=== PATIENT | male | born 1990 | race Caucasian/White ===

== ENCOUNTER 2024-03-31 21:16 | Emergency (ER) | payer OTHER, SELFPAY ==
[2024-03-31 21:18] VITALS: BP 153/91
--- NOTE | 2024-03-31 21:31 | ED.GENMED ---
History of Present Illness
General
Chief Complaint: Seizure
Source: patient
Time Seen by Provider: 03/31/24 21:20
Travel History
Have you had any contact with someone who has COVID-19?: No
Do you have any symptoms of coronavirus? Fever > 100 degrees, chills, cough, shortness of breath, sore throat, loss of taste or smell, muscle aches, or headache?: No
History of Present Illness
History of Present Illness:
54-year-old male presents to the emergency room via ambulance after having event that is described as a seizure by family. Patient was going to the bathroom when he evidently had become unresponsive. He was witnessed to be stiff initially and then
have generalized tonic-clonic activity. He did bite his tongue. Patient is currently awake and alert. He feels foggy but is able to answer questions appropriately. He denies any history of seizures. He denies any illicit drug use. Specifically
denies using benzodiazepine. He drinks alcohol occasionally but denies any regular use of alcohol or recent cessation of regular alcohol use. Patient does complain of some left thorax pain which occurred while at work. He was putting a tree
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 He did not get struck in the head. He has pain with deep inspiration but is not short of breath. He denies abdominal pain.
Past History
Past History
ED Past Medical History: None
ED Past Surgical History: Orthopedic
Social History
Living: with family
Phy Exam
Physical Exam
Physical Exam:
General: Awake, Alert, Oriented X3. No acute distress.
Vitals: unremarkable
Head: Atraumatic
Eyes: Pupils equal, EOMI
Throat: Airway intact, no exudates
Neck: Trachea midline
Lungs: Clear and equal b/l
Heart: Regular rate, no murmurs
Abd: Soft, Nontender, No pulsatile mass
Neuro: Cranial nerves intact, muscle strength equal bilaterally, cerebellar exam normal
Skin: Warm, dry, no rash
Extremities: pulses equal b/l, no edema
Course
Orders/Labs/Results
Orders:
Orders
03/31/24 21:30
Electrocardiogram (*1) Stat
Reason for Study: Other
Other Reason for Exam: neuro symptoms
CT Head W/o Iv Contrast Urgent
Comment:
Reason For Exam: new onset sz
Cardiac Monitoring- Treatment ONCE
EKG- Treatment ONCE
03/31/24 21:31
CR Chest - 2 Views Urgent
Comment:
Reason For Exam: left thorax pain,
03/31/24 21:44
Basic Metabolic Panel Urgent
Complete Blood Count/With Diff Urgent
03/31/24 21:59
Ketorolac [Toradol] 15 mg .ROUTE .STK-MED ONE
03/31/24 22:01
Ketorolac [Toradol] 15 mg IM NOW STA
Abnormal Lab Results
03/31/24
21:44
RBC 4.44 L 10^6/uL
(4.70-6.10)
MCH 31.3 H pg
(27.0-31.0)
Absolute Lymphs (auto) 0.8 L 10^3/uL
(1.2-3.4)
Absolute Monos (auto) 0.7 H 10^3/uL
(0.1-0.6)
Immature Gran % 0.8 H %
(0-0.5)
Lymphocytes % 15.6 L %
(20.5-51.1)
Monocytes % 14.5 H %
(1.7-9.3)
Sodium 133 L mmol/L
(135-145)
Carbon Dioxide 18 L mmol/L
(22-30)
Glucose 144 H mg/dl
(70-99)
03/31/24 21:44
03/31/24 21:44
Vital Signs
Initial and Last Documented VS:
Initial Vital Signs
Temp Pulse Resp BP Pulse Ox
98.4 F 99 18 153/91 96
03/31/24 21:18 03/31/24 21:18 03/31/24 21:18 03/31/24 21:18 03/31/24 21:18
Last Documented Vital Signs
Temp Pulse Resp BP Pulse Ox
98.4 F 94 14 152/78 97
03/31/24 21:18 03/31/24 23:45 03/31/24 23:45 03/31/24 23:00 03/31/24 23:15
MDM/Problems Addressed
Differential Diagnosis Includes:
brain mass, electrolyte abn, medication effect, epilepsy
MDM/Problems Addressed:
Patient presents after having what is likely a tonic-clonic seizure at home. No previous history. Patient is back to baseline. CT does not show any abnormal findings. Patient denies drug or alcohol use and there does not appear to be a history
consistent with withdrawal of the substances. Patient did have a recent injury to his chest wall but denies any head injury. Chest x-ray does not show any acute abnormality as far as the chest goes. Discussed presentation with neurology. Given
the patient's had only 1 seizure would hold off on antiepileptics at this point. Patient informed that [employer] form was filed.
*Radiology
Radiology exam reviewed: radiology read reviewed
*Pulse Oximetry
Patient hypoxic: no
*Critical Care Note
Total Time (30-74mins, 75-104mins- exclusive of procedures): Not Applicable
ED Attending Note
-
Portions of this chart may have been created with voice recognition software.� Occasional wrong word or��sound alike� substitutions may have occurred due to the inherent limitations of voice recognition software.
Discharge Plan
Departure
Patient Disposition: Home (Routine Discharge)
Date of Disposition: 03/31/24
Time of Disposition: 23:45
Patient with high blood pressure during this ER visit?: Yes
Condition: Good
Discharge Problem:
Seizure
Instructions: Seizures, Adult (DC), BLOOD PRESSURE
Prescriptions:
No Action
Adderall
oxycodone-acetaminophen 5 MG/325 MG tablet
1 tab PO Q4HPRN PRN (Reason: pain) Qty: 10 0RF
oxycodone 10 mg tablet
10 mg PO TID PRN (Reason: pain) Qty: 12 0RF
Referrals:
Remberto Westbrook MD [Active] -
Remberto Pemberton DO [Family Provider] -
Activity Restrictions/Additional Instructions:
We have submitted a form to [employer] alerting them of your seizure so you will not be able to drive until cleared by a neurologist.
Interventions
Interventions:
*Risk Screen - Suicide Last Done: 03/31/24 21:18
*General Assessment Last Done: 03/31/24 21:18
*Neglect/Abuse Screening Last Done: 03/31/24 21:18
ED- Fall Risk Assessment Last Done: 03/31/24 21:45
*ED COVID-19 Vaccine History Last Done: 03/31/24 21:45
*Nursing Disposition Last Done: 04/01/24 00:06
ED- Cardiac Assessment Last Done: 03/31/24 21:45
ED- Neurological Assessment Last Done: 03/31/24 21:45
ED- Pulmonary Assessment Last Done: 03/31/24 21:45
Discharge Date and Time
Discharge Date/Time: 04/01/24 00:07
Print Language: FILIPINO
[2024-03-31 21:42] VITALS: BMI 26.1
[2024-03-31 21:54] LABS: % Basophils 0.4 % (0-2); % Eosinophils 1.2 % (0-6); % Immature Granulocytes 0.8 % (0-0.5); % Lymphocytes 15.6 % (20.5-51.1); % Monocytes 14.5 % (1.7-9.3); % Neutrophils 67.5 % (42.2-75.2); Absolute Eosinophils 0.1 10^3/uL (0-0.7); Absolute Lymphocytes 0.8 10^3/uL (1.2-3.4); Absolute Monocytes 0.7 10^3/uL (0.1-0.6); Absolute Neutrophils 3.3 10^3/uL (1.4-6.5); Hemoglobin 13.9 g/dL (13.0-18.0); Mean Corp Hgb Conc. 35.6 g/dL (33.0-37.0); Mean Corpuscular Hgb 31.3 pg (27.0-31.0); Mean Corpuscular Volume 87.8 fL (80.0-94.0); Mean Platelet Volume 9.7 fL (7.4-10.4); Nucleated Red Blood Cells % 0 % (-); Platelet Count 217 10^3/uL (130-400); Red Blood Cell Count 4.44 10^6/uL (4.70-6.10); Red Cell Dist. Width 12.4 % (11.5-14.5); White Blood Cell Count 4.8 10^3/uL (4.8-10.8)
[2024-03-31] MEDS: TORADOL 15 MG IM (22:01)
[2024-03-31 22:05] VITALS: BP 146/90
[2024-03-31 22:13] LABS: Blood Urea Nitrogen 20 mg/dl (9-20); Calcium 10.2 mg/dl (8.4-10.2); Carbon Dioxide 18 mmol/L (22-30); Chloride 98 mmol/L (98-107); Estimated Creatinine Clearance > 125 ml/min; Glucose 144 mg/dl (70-99); Potassium 4.1 mmol/L (3.5-5.1); Sodium 133 mmol/L (135-145); eGFR > 60.00
[2024-03-31 23:00] VITALS: BP 152/78
== END 2024-04-01 00:07 | disposition home or self-care (01) ==
LOC: EMR 21:16
PROVIDERS: EMERGENCY PHYSICIAN Emergency Medicine; FAMILY PHYSICIAN Family Medicine
DX: G40.909 Epilepsy, unspecified, not intractable, without status epilepticus (principal)
CPT/HCPCS: 99284; 96372; 70450; 71046; 80048; 85025; 93005

== ENCOUNTER → 2024-04-15 07:29 | Outpatient (REF) | payer OTHER, SELFPAY ==
--- NOTE | 2024-04-18 08:41 | EEG.RPT ---
Electroencephalogram Report
Recording
Date of EE04/18/24
Type of EEG: Routine
Length of EEG recordin mins
Done with Video Recording: Yes
Patient Status: Outpatient
Recording Conditions: Awake and Drowsy
Hyperventilation Performed: Yes
Photic Stimulation Performed: Yes
Report
METHODS
A 21 channel digitized electroencephalogram was performed at [facility]. The 10/20 international system of electrode placement was used. In addition to EEG, the patient was monitored for EKG. The duration of the recording was 50 minutes.
BACKGROUND
During the awake state, with the eyes closed, the background consisted of a normal amplitude, 11 Hertz posterior reactive rhythm that attenuated appropriately with eye opening. Beta activity was distributed diffusely with an anterior predominance.
There was a normal anterior-posterior voltage gradient. With eye opening the background activity changed to a low voltage mixture of alpha, beta, and occasional theta range frequencies. There were no significant asymmetries of background activity
noted.
HYPERVENTILATION
Hyperventilation resulted in some focal slowing of the background activity to 2-3Hz at P4 and T6 with superimposed ~7Hz frequencies without appearance of abnormal activity.
PHOTIC STIMULATION
Photic stimulation using a step-mustafa increase in photic frequency varying from 1-31 Hertz resulted in no driving responses but no appearance of abnormal activity.
ABNORMAL EEG ACTIVITY
None
CLINICAL EVENTS
None
INTERPRETATION AND CLINICAL CORRELATION
This EEG is abnormal due to the presence of moderate focal slowing of the background activity at the right parietal and temporal region without appearance of epileptiform activity seen during hyperventilation. No seizures were captured. These
findings can be seen with an underlying right temporal/parietal cortical pathology.
== END ==
LOC: EEG 07:29
PROVIDERS: ATTENDING PHYSICIAN Psychiatry & Neurology Neurology; FAMILY PHYSICIAN Family Medicine
DX: R56.9 Unspecified convulsions (principal)
CPT/HCPCS: 95812